=== PATIENT | female | born 1965 | race Native Hawaiian/Other Pacific Islander ===

== ENCOUNTER 2019-03-24 10:45 | Outpatient (CLI) | payer BC | END 2019-03-24 19:18 | disposition home or self-care (01) | LOC: MAMMO 10:45 | DX: Z12.31 Encounter for screening mammogram for malignant neoplasm of breast (principal) ==

== ENCOUNTER 2020-05-03 10:10 | Outpatient (CLI) | payer OTHER | END 2020-05-03 21:27 | disposition home or self-care (01) | LOC: EDBD 10:10 → MAMMO 10:10 | PROVIDERS: ATTEND Nurse Practitioner Family | DX: Z12.31 Encounter for screening mammogram for malignant neoplasm of breast (principal) ==